=== PATIENT | male | born 2000 | race Caucasian/White ===

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

== ENCOUNTER 2020-06-25 12:04 | Emergency (ER) | payer SELFPAY ==
[~2020-06-25] VITALS: Ht 172.7 cm; Wt 72.0 kg
[~2020-06-25 12:04] MED LIST: ONDA4TAB12 PO
[2020-06-25 12:32] VITALS: BP 115/72
[2020-06-25] MEDS ORDERED: AMOX500T PO (13:07)
[2020-06-25] MEDS ORDERED: DICL50TA2 PO (13:07)
--- NOTE | 2020-06-25 13:08 | PHYS DOC ---
Past Medical History Past Medical History: Other Additional Past Medical Histor: ADHD, HEART MUMMUR Past Surgical History: Tonsillectomy Additional Past Surgical Histo: double hernia Smoking Status: Current Every Day Smoker Alcohol Use: None Drug Use: None General Adult EDM: Chief Complaint: DENTAL PROBLEM HPI: HPI: Patient is a 20 year old male presented to the ED today complaining of moderate pain to the right upper gum teeth that began this morning. Patient states he has tried using Orajel, ibuprofen with no relief. Denies any fever or trismus. He states he has not seen a dentist for a long time. Review of Systems: Review of Systems: Constitutional: Denies fever or chills. [] [ HENT: Reports right upper gum dental pain Musculoskeletal: Denies back pain or joint pain. [] Integument: Denies rash. [] Neurologic: Denies headache, focal weakness or sensory changes. [] Psychiatric: Denies depression or anxiety. [] Heart Score: Risk Factors: Risk Factors: DM, Current or recent (<one month) smoker, HTN, HLP, family history of CAD, obesity. Risk Scores: Score 0 - 3: 2.5% MACE over next 6 weeks - Discharge Home Score 4 - 6: 20.3% MACE over next 6 weeks - Admit for Clinical Observation Score 7 - 10: 72.7% MACE over next 6 weeks - Early Invasive Strategies Allergies: Allergies: Allergies Coded Allergies Type Severity Reaction Last Updated Verified erythromycin base Allergy Intermediate hives 04/19/18 Yes codeine Allergy Unknown 06/25/20 Yes Physical Exam: PE: Constitutional: Well developed, well nourished, no acute distress, non-toxic appearance. [] HENT: Normocephalic, atraumatic, bilateral external ears normal, oropharynx moist, no oral exudates, nose normal. [] Most of patient's teeth are broken and decayed and missing. Area of concern on the right upper gum has no erythema. No abscess. Skin: Warm, dry, no erythema, no rash. [] Back: No tenderness, no CVA tenderness. [] Extremities: No tenderness, no cyanosis, no clubbing, ROM intact, no edema. [] Neurologic: Alert and oriented X 3, normal motor function, normal sensory function, no focal deficits noted. [] Psychologic: Affect normal, judgement normal, mood normal. [] Current Patient Data: Vital Signs: Vital Signs Date Time Temp Pulse Resp B/P (MAP) Pulse Ox O2 Delivery O2 Flow Rate FiO2 06/25/20 12:32 97.7 80 16 115/72 (86) 99 Room Air 97.7 EKG: EKG: [] Radiology/Procedures: Radiology/Procedures: [] Course & Med Decision Making: Course & Med Decision Making Pertinent Labs and Imaging studies reviewed. (See chart for details) This is a 20-year-old male patient with infected dental caries. Discharged with amoxicillin and diclofenac. Provided dental list for follow-up Dragon Disclaimer: Z2 Disclaimer: This electronic medical record was generated, in whole or in part, using a voice recognition dictation system. Departure Departure Impression: Primary Impression: Dentalgia Additional Impression: Infected dental caries Disposition: 01 DC HOME SELF CARE/HOMELESS Condition: STABLE Referrals: NO PCP (PCP) follow up with a dentist from the list provided in 1 week Patient Instructions: Dental Caries Additional Instructions: You were evaluated in the emergency room for dental pain. Take the prescribed antibiotics until completed. Take pain medicine as needed. Follow-up with the dentist from the list provided Scripts Diclofenac Potassium (DICLOFENAC POTASSIUM) 50 Mg Tablet 1 TAB PO BID, #20 TAB 0 Refills Prov: PÉREZ SCHAFFER APRN 06/25/20 Amoxicillin (AMOXICILLIN) 500 Mg Tablet 1 TAB PO BID, #20 TAB Prov: PÉREZ SCHAFFER APRN 06/25/20 PÉREZ SCHAFFER APRN Jun 25, 2020 13:08
== END 2020-06-25 13:26 | disposition home or self-care (01) ==
LOC: ER 12:04
DX: K02.9 Dental caries, unspecified (principal); K08.89 Other specified disorders of teeth and supporting structures; F17.200 Nicotine dependence, unspecified, uncomplicated; Z90.89 Acquired absence of other organs; Z98.890 Other specified postprocedural states; Z88.5 Allergy status to narcotic agent; Z88.1 Allergy status to other antibiotic agents
CPT/HCPCS: 99283

== ENCOUNTER 2021-01-17 09:16 | Emergency (ER) | payer SELFPAY ==
[~2021-01-17] VITALS: Ht 172.7 cm; Wt 70.0 kg
[~2021-01-17 09:16] MED LIST changes: +AMOX500T PO; +DICL50TA2 PO
[2021-01-17 09:20] VITALS: BP 124/69
[2021-01-17] MEDS ORDERED: AMOX500C PO (10:00)
[2021-01-17] MEDS ORDERED: IBUP-1007 PO (10:00)
--- NOTE | 2021-01-17 10:00 | PHYS DOC ---
Past Medical History Past Medical History: Other Additional Past Medical Histor: ADHD, HEART MUMMUR Past Surgical History: Tonsillectomy Additional Past Surgical Histo: double hernia Smoking Status: Current Every Day Smoker Alcohol Use: None Drug Use: None General Adult EDM: Chief Complaint: DENTAL PROBLEM HPI: HPI: Patient is a 20 year old who present to ER due to dental pain and right upper teeth area for several days. Patient has history of severe dental decay. For the last 2 days his pain got worse. Patient denies any fever, no cough, no chest pain, no abdominal pain, no neck pain, no headache, no nausea vomiting. Review of Systems: Review of Systems: Constitutional: Denies fever or chills. [] Eyes: Denies change in visual acuity. [] HENT: Denies nasal congestion or sore throat. Positive for dental pain Respiratory: Denies cough or shortness of breath. [] Cardiovascular: Denies chest pain or edema. [] GI: Denies abdominal pain, nausea, vomiting, bloody stools or diarrhea. [] : Denies dysuria. [] Musculoskeletal: Denies back pain or joint pain. [] Integument: Denies rash. [] Neurologic: Denies headache, focal weakness or sensory changes. [] Endocrine: Denies polyuria or polydipsia. [] Lymphatic: Denies swollen glands. [] Psychiatric: Denies depression or anxiety. [] Heart Score: C/O Chest Pain: N/A Risk Factors: Risk Factors: DM, Current or recent (<one month) smoker, HTN, HLP, family history of CAD, obesity. Risk Scores: Score 0 - 3: 2.5% MACE over next 6 weeks - Discharge Home Score 4 - 6: 20.3% MACE over next 6 weeks - Admit for Clinical Observation Score 7 - 10: 72.7% MACE over next 6 weeks - Early Invasive Strategies Allergies: Allergies: Allergies Coded Allergies Type Severity Reaction Last Updated Verified erythromycin base Allergy Intermediate hives 04/19/18 Yes codeine Allergy Unknown 06/25/20 Yes Physical Exam: PE: Constitutional: Well developed, well nourished, no acute distress, non-toxic appearance. [] HENT: Normocephalic, atraumatic, bilateral external ears normal, oropharynx moist, no oral exudates, nose normal. Diffuse dental decay and gingivitis Eyes: PERRLA, EOMI, conjunctiva normal, no discharge. [] Neck: Normal range of motion, no tenderness, supple, no stridor. [] Neurologic: Alert and oriented X 3, normal motor function, normal sensory function, no focal deficits noted. [] Psychologic: Affect normal, judgement normal, mood normal. [] Current Patient Data: Vital Signs: Vital Signs Date Time Temp Pulse Resp B/P (MAP) Pulse Ox O2 Delivery O2 Flow Rate FiO2 01/17/21 09:20 98.7 80 16 124/69 (87) 97 Room Air 98.7 EKG: EKG: [] Radiology/Procedures: Radiology/Procedures: [] Course & Med Decision Making: Course & Med Decision Making Pertinent Labs and Imaging studies reviewed. (See chart for details) [] Dragon Disclaimer: Dragon Disclaimer: This electronic medical record was generated, in whole or in part, using a voice recognition dictation system. Departure Departure Impression: Primary Impression: Infected dental caries Disposition: HOME / SELF CARE / HOMELESS Condition: STABLE Referrals: NO PCP (PCP) Follow-up with your dentist next week. Patient Instructions: Dental Abscess Additional Instructions: Thank you for visiting our Emergency Department. We appreciate you trusting us with your care. If any additional problems come up don't hesitate [facility]. Please follow up with your primary care provider so they can plan additional care if needed and know about the problem that you had. If symptoms worsen come back to the Emergency Department. Any concerning symptoms that start such as chest pain, shortness of air, weakness or numbness on one side of the body, running high fevers or any other concerning symptoms return to the ER. Scripts Ibuprofen (IBUPROFEN) 600 Mg Tablet 600 MG PO PRN Q6HRS PRN for PAIN, #30 TAB Prov: MARCIA DAVIS DO 01/17/21 Amoxicillin (AMOXICILLIN) 500 Mg Capsule 1 CAP PO TID for 10 Days, #30 CAP Prov: MARCIA DAVIS DO 01/17/21 MARCIA DAVIS DO Jan 17, 2021 10:00
[2021-01-17] MEDS ORDERED: IBUPROFEN 200 MG TABLET. PO ONE (10:45)
== END 2021-01-17 10:46 | disposition home or self-care (01) ==
LOC: ER 09:16
DX: K04.7 Periapical abscess without sinus (principal); F17.200 Nicotine dependence, unspecified, uncomplicated; Z88.1 Allergy status to other antibiotic agents; Z88.5 Allergy status to narcotic agent
CPT/HCPCS: 99283

== ENCOUNTER 2021-03-08 11:59 | Emergency (ER) | payer SELFPAY ==
[~2021-03-08 11:59] MED LIST changes: +AMOX500C PO; +IBUP-1007 PO
== END 2021-03-08 19:23 | disposition left against medical advice (07) ==
LOC: ER 11:59
DX: K08.89 Other specified disorders of teeth and supporting structures (principal); Z53.21 Procedure and treatment not carried out due to patient leaving prior to being seen by health care provider